=== PATIENT | female | born 1955 | race Caucasian/White ===

== ENCOUNTER 2023-10-22 09:00 | Outpatient (RCR) | payer MEDICARE, SELFPAY | END 2024-02-07 08:14 | disposition home or self-care (01) | PROVIDERS: PCP Family Medicine; Visit Provider Orthopaedic Surgery | DX: M70.61 Trochanteric bursitis, right hip (principal); Z51.89 Encounter for other specified aftercare | CPT/HCPCS: 97110; 97112; 97140; 97162; 97530 ==

== ENCOUNTER 2024-09-17 13:45 | Outpatient (RCR) | payer MEDICARE, SELFPAY | END 2024-12-14 11:55 | disposition home or self-care (01) | PROVIDERS: PCP Family Medicine; Visit Provider Orthopaedic Surgery | DX: M75.81 Other shoulder lesions, right shoulder (principal); M75.51 Bursitis of right shoulder; Z51.89 Encounter for other specified aftercare | CPT/HCPCS: 97032; 97110; 97140; 97161 ==